=== PATIENT | male | born 1995 | race Caucasian/White ===

== ENCOUNTER 2019-01-20 20:39 | Emergency (ER) | payer MEDICAID, OTHER ==
[~2019-01-20] VITALS: Ht 172.7 cm; Wt 71.3 kg
[2019-01-20 20:41] VITALS: Ht 172.7 cm; Wt 71.3 kg
[2019-01-20] MEDS ORDERED: morphine 4 MG/ML VIAL IV STA (22:03)
[2019-01-20] MEDS ORDERED: LIDOCAINE 1% (MDV) 10 ML INJ INJ STA (23:17)
[2019-01-20 23:46] VITALS: BP 120/58; PULSE 99; RESP 18
[2019-01-20] MEDS ORDERED: LIDOCAINE 1% (MDV) 20 ML INJ INJ STA (23:57)
[2019-01-20] MEDS ORDERED: IBUP-1542 PO (23:57)
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
== END 2019-01-21 00:47 | disposition home or self-care (01) ==
LOC: E/R 20:39
DX: S09.90XA Unspecified injury of head, initial encounter (principal); S40.022A Contusion of left upper arm, initial encounter; S80.212A Abrasion, left knee, initial encounter; S60.512A Abrasion of left hand, initial encounter; S51.012A Laceration without foreign body of left elbow, initial encounter; R40.2142 Coma scale, eyes open, spontaneous, at arrival to emergency department; R40.2252 Coma scale, best verbal response, oriented, at arrival to emergency department; R40.2362 Coma scale, best motor response, obeys commands, at arrival to emergency department; V18.5XXA Pedal cycle passenger injured in noncollision transport accident in traffic accident, initial encounter
CPT/HCPCS: 70450; 72125; 73080; 73090; 73110; 73562; 96374; J2270; Z7502; Z7610

== ENCOUNTER 2019-01-31 19:17 | Emergency (ER) | payer MEDICAID ==
[~2019-01-31] VITALS: Wt 72.6 kg
[~2019-01-31 19:17] MED LIST: IBUP-1542 PO
[2019-01-31 19:25] VITALS: BP 122/63; PULSE 84; RESP 18
--- NOTE | 2019-01-31 19:39 | ERD ---
ER Documentation Chief Complaint Chief Complaint here for wound check and staple removal to left arm . HPI 23-year-old male presents for recheck on left elbow laceration sustained 10 days ago. He has no fevers, redness, bleeding, discharge. He presents for evaluation for staple removal. ROS All systems reviewed and are negative except as per history of present illness. Medications Home Meds Active Scripts Ibuprofen* (Motrin*) 600 Mg Tab, 600 MG PO Q6H PRN for PAIN AND OR ELEVATED TEMP, #30 TAB Prov:CRISELDA CHAVIS MD 01/20/19 Allergies Allergies: Coded Allergies: No Known Allergy (Unverified , 01/20/19) PMhx/Soc Medical and Surgical Hx: pt denies Medical Hx, pt denies Surgical Hx Hx Alcohol Use: Yes (SOCIAL) Hx Substance Use: Yes (MARIJUANA) Hx Tobacco Use: No Smoking Status: Never smoker Physical Exam Vitals Vital Signs Date Temp Pulse Resp B/P (MAP) Pulse Ox O2 O2 Flow FiO2 Time Delivery Rate 01/31/19 98.1 84 18 122/63 99 19:25 (82) Physical Exam Const: No acute distress Head: Atraumatic Eyes: Normal Conjunctiva ENT: Normal External Ears, Nose and Mouth. Neck: Full range of motion. No meningismus. Resp: Clear to auscultation bilaterally Cardio: Regular rate and rhythm, no murmurs Abd: Soft, non tender, non distended. Normal bowel sounds Skin: No petechiae or rashes. Healing left elbow laceration with jarocho buried in scabs. No erythema, discharge, restricted range of motion weakness. Back: No midline or flank tenderness Ext: No cyanosis, or edema Neur: Awake and alert Psych: Normal Mood and Affect Procedures/MDM [place] removed without complications. Patient presents with satisfactory healing laceration on his left elbow without current signs of infection, dehiscence, additional complications. He will be discharged home with instructions for wound care, return precautions for redness, fevers, new or worsening symptoms. Departure Diagnosis: Primary Impression: Encounter for removal of jarocho Condition: Stable Patient Instructions: Staple Removal, No Complication Additional Instructions: Recheck for worsening redness, fever, discharge, new worsening symptoms. SHE FAJARDO MD Jan 31, 2019 19:39
== END 2019-01-31 20:20 | disposition home or self-care (01) ==
LOC: FTE 19:17
DX: Z48.02 Encounter for removal of sutures (principal)
CPT/HCPCS: 99281